=== PATIENT | male | born 1965 | race Caucasian/White ===

== ENCOUNTER 2019-04-02 06:49 | Day surgery (SDC) | payer BC, SELFPAY ==
[2019-03-15 14:59] VITALS: BMI 28.0
--- NOTE | 2019-03-16 07:56 | HP_ITS ---
Intake Vital Signs 03/15/19 Body Mass Index (BMI) 28.0 03/15/19 Height 6 ft 03/15/19 Weight: 230 lb 03/15/19 Body Mass Index (BMI) 31.1 03/15/19 Blood Pressure 107/73 03/15/19 Blood Pressure Location Rt brachial 03/15/19 Respiratory Rate 18 03/15/19 Pulse Rate 97 Intake Visit Reasons: Abdominal Strain W/C Electoral Officer Required: No Is patient in pain?: No Allergies No Known Allergies Allergy (Verified 03/15/19 14:59) Medications Lisinopril/Hydrochlorothiazide [Zestoretic 20-25 mg Tablet] 1 ea PO DAILY 10/26/16 [History Confirmed 03/15/19] Omeprazole [Prilosec] 20 mg PO DAILY 10/26/16 [History Confirmed 03/15/19] Nicotine [Nicotine Patch] 1 ea TD QHS #30 patch.td24 11/01/16 [Rx Confirmed 03/15/19] PFS Medical History GERD (gastroesophageal reflux disease) (Acute) HTN (hypertension) (Chronic) Surgical History (Updated 03/15/19 @ 14:54 by Janiya Marcos) H/O melanoma excision (Acute) History of back surgery (Acute) S/P excision of vocal cord nodule (Acute) Family History (Updated 03/15/19 @ 14:54 by Janiya Marcos) Father Diabetes Mother Hypertension Aunt Hypertension Social History (Updated 03/16/19 @ 07:56 by Izzy Dumont MD) Smoking Status: Current every day smoker alcohol intake: current HPI HPI HPI: MICH GRANT, is a 54 M who presents to the office today for HPI HPI Surgical H&P: Yes HPI: MICH GRANT, is a 54 M who presents to the office today for umbilical hernia. Patient states that he has noticed that over months times dull pain around his umbilicus and a bulge at his navel. Patient states that he works at [employer] and he does lift boxes of 25 to 30 pounds repetitively. Patient states that the bulge at his navel is new. Patient currently states the pain at his umbilicus is 2/10 when he goes to lift it is a 4/10. Patient is currently on light duty at work. Patient states he has bowel movements daily denies any blood. Patient has no immediate family history of colon cancer however his half sister's (same mother) son was diagnosed with colon cancer at age 25. Patient is never had a colonoscopy. ROS General General: Yes weight change and fatigue Gastro Gastrointestinal: Yes abdominal pain, No nausea or vomiting, No diarrhea, No constipation, No blood in stool, Yes acid reflux (Controlled with medication), No hemorrhoids, No ulcers, No gallbladder problem, No black,tarry stools Exam Const General: cooperative, comfortable, no acute distress Resp Effort & Inspection: normal respiratory effort Cardio Rate: regular rate GI Inspection: non-distended Palpation: soft, no guarding, hernia umbilical (0.5cm, reductible), tender (at hernia, no PS) Extrem General: no clubbing, cyanosis or edema Psych Affect: normal affect Assessment & Plan Problems 1. Umbilical hernia K42.9 2. Screening for colon cancer Z12.11 Plan Discussed with patient that his current C9 for [employer]. is abdominal strain and we would need to await paperwork for this to be changed umbilical hernia for them to agree to an umbilical hernia repair with possible mesh. Recommend no lifting greater than 20 pounds until hernia repair completed and he will still be on some restrictions initially postoperatively per Once it is approved by [employer]. will plan to do an umbilical herniorrhaphy with mesh. Reviewed the procedure with the patient including the risks, including but not limited to infection, bleeding, injury to the small bowel, and recurrence. All questions were answered. Also, discussed risk of strangulated bowel. Cautioned the patient that if he has N/V, ABD distention, increased umbilical pain or changes of the skin over the hernia he needs to go to the ER. Also discussed patient he is due for screening colonoscopy. Prefer to complete this prior to surgery and placing mesh in the abdomen. Patient will let us know what he plans to do. I believe this would hold up his umbilical hernia repair as we start wait for the paperwork. I have discussed the above with the patient. I have offered the patient colonoscopy for evaluation. I have explained the risks/benefits of the procedure and described the procedure. I have discussed the risks with the patient, including but not limited to: infection, bleeding, perforation of the GI tract requiring emergency surgery, inability to complete the procedure, injury to any internal organs, complications of anesthesia, etc. - the patient understands and agrees to proceed. I have answered all the patient's questions to the patient's satisfaction and the patient has no further questions. The patient has been given instructions for the colon cleansing preparation. 1 day of clears, MiraLAX Dulcolax prep. Izzy Dumont M.D. Pager: [phone] [facility] [address] [place] [address], [facility], [address] [place] [address] Office: [phone] Plan Detail Follow Up Will schedule surgery as soon as able to complete, or possibly colonoscopy in the meantime Coding Level of Care Code Off vis,new,level 3 Diagnoses Umbilical hernia K42.9 Screening for colon cancer Z12.11 03/16/19 0756 <Electronically signed by Izzy Babcock am, MD> Date _ Izzy Dumont MD I have examined the patient the following changes are noted: Patient states he has been doing well on light duty at work no pain at the hernia site. Patient states he tolerated the bowel prep well and it was clear this morning.
[2019-04-02] VITALS (7 sets, daily range): BP systolic 98–135; BP diastolic 66–93; PULSE 72–76; RESP 16; TEMP 36.3–37; O2SAT 96–100; BMI 31.2
--- NOTE | 2019-04-02 | COLBX_PTH ---
PATIENT: MICH GRANT LOC: [facility] U#:[id number] AGE/SX: 54/M ROOM: RE04/02/[address]: Dr. Izzy Dumont MD : 1965 BED: DIS: 04/02/2019 SPEC #: [id number] RECD: 04/02/19 12:24 STATUS: MARKEL ROBEL #: [id number] JAVIER: 04/02/19 00:[address]: Izzy Dumont DEPT: SURGICAL PATHOLOGY RECD BY: Ankur Balbuena ENTERED: 04/02/19 12:25 SP TYPE: COLON BX OTHR DR: Dr. Manjit Fernández MD Tissues: A - Ascending colon B - Rectum, NOS Procedures: Surgery Specimen Level IV HEADER OPERATION: Colonoscopy (MAC) PRE-OP DIAGNOSIS: Screening TISSUE SUBMITTED: A - Ascending colon polyp biopsy, B - Rectal polyp biopsy MICROSCOPIC DIAGNOSIS A. Ascending colon polyp, biopsy: Tubular adenoma. B. Rectal polyp, biopsy: Hyperplastic polyp. AM:guero 04/03/19 MICROSCOPIC DESCRIPTION Slides are reviewed. GROSS DESCRIPTION A - Received in fixative is one container labeled with the patient's name and designated ascending colon polyp. The specimen consists of one irregular fragment of light jeronimo soft tissue that measures 0.4 x 0.4 x 0.1 cm. The specimen is totally submitted in one cassette. B - Received in fixative is one container labeled with the patient's name and designated rectal polyp biopsy. The specimen consists of two irregular fragments of light jeronimo soft tissue that in aggregate measure 0.5 x 0.4 x 0.1 cm. The specimen is totally submitted in one cassette. / ALEJANDRO:guero 04/02/19 TC:5 CPT: 23466 x2
--- NOTE | 2019-04-02 08:25 | OP.ENDO_ITS ---
04/02/2019 Manjit Fernández [address] [place] [address] Re : Colonoscopy procedure for Asaf Flores Dear Dr. Fernández This procedure was performed on Tuesday, April 02, 2019. My impressions and recommendations are as follows: Impressions : - Hemorrhoids found on perianal exam. - Two less than 5 mm polyps in the rectum and in the ascending colon, removed with a cold biopsy forceps. Resected and retrieved. - The examination was otherwise normal on direct and retroflexion views. Recommendations : - Discharge patient to home. - Resume previous diet. - Continue present medications. - Await pathology results. - Repeat colonoscopy in 3 - 5 years for surveillance based on pathology results. My findings are described in the full procedure note, which is enclosed. If I can be of further assistance, please feel free to contact me at Doctor phone number(s): , Work: . Sincerely, MD Izzy Red MD 04/02/2019 8:25:13 AM This report has been signed electronically.
== END 2019-04-02 08:54 | disposition home or self-care (01) ==
LOC: EN 06:50 → AC 06:51
PROVIDERS: Family Provider Family Medicine; PCP Family Medicine; Referring Provider Surgery; Visit Provider Surgery
PROC: 0DJD8ZZ Inspection of Lower Intestinal Tract, Via Natural or Artificial Opening Endoscopic (ICD-10-PCS; CPT 45378; principal; 2019-04-02 07:55)
DX: Z12.11 Encounter for screening for malignant neoplasm of colon (principal); K64.9 Unspecified hemorrhoids; K62.1 Rectal polyp; D12.2 Benign neoplasm of ascending colon; I10 Essential (primary) hypertension; K21.9 Gastro-esophageal reflux disease without esophagitis; F17.200 Nicotine dependence, unspecified, uncomplicated; K42.9 Umbilical hernia without obstruction or gangrene
CPT/HCPCS: 45380; 88305; J7120

== ENCOUNTER 2019-04-09 13:31 | Day surgery (SDC) | payer OTHER, SELFPAY ==
--- NOTE | 2019-03-16 07:56 | HP_ITS ---
Intake Vital Signs 03/15/19 Body Mass Index (BMI) 28.0 03/15/19 Height 6 ft 03/15/19 Weight: 230 lb 03/15/19 Body Mass Index (BMI) 31.1 03/15/19 Blood Pressure 107/73 03/15/19 Blood Pressure Location Rt brachial 03/15/19 Respiratory Rate 18 03/15/19 Pulse Rate 97 Intake Visit Reasons: Abdominal Strain W/C Jira Administrator Required: No Is patient in pain?: No Allergies No Known Allergies Allergy (Verified 03/15/19 14:59) Medications Lisinopril/Hydrochlorothiazide [Zestoretic 20-25 mg Tablet] 1 ea PO DAILY 10/26/16 [History Confirmed 03/15/19] Omeprazole [Prilosec] 20 mg PO DAILY 10/26/16 [History Confirmed 03/15/19] Nicotine [Nicotine Patch] 1 ea TD QHS #30 patch.td24 11/01/16 [Rx Confirmed 03/15/19] PFS Medical History GERD (gastroesophageal reflux disease) (Acute) HTN (hypertension) (Chronic) Surgical History (Updated 03/15/19 @ 14:54 by Janiya Marcos) H/O melanoma excision (Acute) History of back surgery (Acute) S/P excision of vocal cord nodule (Acute) Family History (Updated 03/15/19 @ 14:54 by Janiya Marcos) Father Diabetes Mother Hypertension Aunt Hypertension Social History (Updated 03/16/19 @ 07:56 by Izzy Dumont MD) Smoking Status: Current every day smoker alcohol intake: current HPI HPI HPI: MICH GRANT, is a 54 M who presents to the office today for HPI HPI Surgical H&P: Yes HPI: MICH GRANT, is a 54 M who presents to the office today for umbilical hernia. Patient states that he has noticed that over months times dull pain around his umbilicus and a bulge at his navel. Patient states that he works at [employer] and he does lift boxes of 25 to 30 pounds repetitively. Patient states that the bulge at his navel is new. Patient currently states the pain at his umbilicus is 2/10 when he goes to lift it is a 4/10. Patient is currently on light duty at work. Patient states he has bowel movements daily denies any blood. Patient has no immediate family history of colon cancer however his half sister's (same mother) son was diagnosed with colon cancer at age 25. Patient is never had a colonoscopy. ROS General General: Yes weight change and fatigue Gastro Gastrointestinal: Yes abdominal pain, No nausea or vomiting, No diarrhea, No constipation, No blood in stool, Yes acid reflux (Controlled with medication), No hemorrhoids, No ulcers, No gallbladder problem, No black,tarry stools Exam Const General: cooperative, comfortable, no acute distress Resp Effort & Inspection: normal respiratory effort Cardio Rate: regular rate GI Inspection: non-distended Palpation: soft, no guarding, hernia umbilical (0.5cm, reductible), tender (at hernia, no PS) Extrem General: no clubbing, cyanosis or edema Psych Affect: normal affect Assessment & Plan Problems 1. Umbilical hernia K42.9 2. Screening for colon cancer Z12.11 Plan Discussed with patient that his current C9 for [employer]. is abdominal strain and we would need to await paperwork for this to be changed umbilical hernia for them to agree to an umbilical hernia repair with possible mesh. Recommend no lifting greater than 20 pounds until hernia repair completed and he will still be on some restrictions initially postoperatively per Once it is approved by [employer]. will plan to do an umbilical herniorrhaphy with mesh. Reviewed the procedure with the patient including the risks, including but not limited to infection, bleeding, injury to the small bowel, and recurrence. All questions were answered. Also, discussed risk of strangulated bowel. Cautioned the patient that if he has N/V, ABD distention, increased umbilical pain or changes of the skin over the hernia he needs to go to the ER. Also discussed patient he is due for screening colonoscopy. Prefer to complete this prior to surgery and placing mesh in the abdomen. Patient will let us know what he plans to do. I believe this would hold up his umbilical hernia repair as we start wait for the paperwork. I have discussed the above with the patient. I have offered the patient colonoscopy for evaluation. I have explained the risks/benefits of the procedure and described the procedure. I have discussed the risks with the patient, including but not limited to: infection, bleeding, perforation of the GI tract requiring emergency surgery, inability to complete the procedure, injury to any internal organs, complications of anesthesia, etc. - the patient understands and agrees to proceed. I have answered all the patient's questions to the patient's satisfaction and the patient has no further questions. The patient has been given instructions for the colon cleansing preparation. 1 day of clears, MiraLAX Dulcolax prep. Izzy Dumont M.D. Pager: [phone] [facility] [place] [address] Office: [phone] Plan Detail Follow Up Will schedule surgery as soon as able to complete, or possibly colonoscopy in the meantime Coding Level of Care Code Off vis,new,level 3 Diagnoses Umbilical hernia K42.9 Screening for colon cancer Z12.11 03/16/19 0756 <Electronically signed by Izzy Babcock am, MD> Date _ Izzy Dumont MD I have examined the patient the following changes are noted: Patient did have a screening colonoscopy which showed a tubular adenoma in the ascending colon and a hyperplastic polyp in the rectum, recommend repeat colonoscopy in 5 years. No other clinical changes noted. Izzy Dumont M.D. Pager: [phone] [facility] [address] [place] [address] Office: [phone]
[2019-04-02 07:07] VITALS: BMI 31.2
[2019-04-09] VITALS (7 sets, daily range): BP systolic 122–154; BP diastolic 68–103; PULSE 79–88; RESP 16; TEMP 36.1–36.5; O2SAT 92–98; BMI 31.6
--- NOTE | 2019-04-09 13:44 | EKG12_ITS ---
Test Reason : PRE-OP Blood Pressure : / mmHG Vent. Rate : 080 BPM Atrial Rate : 080 BPM P-R Int : 168 ms QRS Dur : 090 ms QT Int : 406 ms P-R-T Axes : 034 012 017 degrees QTc Int : 468 ms Normal sinus rhythm Normal ECG When compared with ECG of 26-OCT-2016 10:04, No significant change was found Confirmed by LYDIA OATES ([id number]), telegraph editor TIFFANIE ORELLANA ([id number]) on 04/12/2019 2:43:54 PM Referred By: Izzy Dumont Confirmed By:LYDIA OATES
[2019-04-09 14:24] LABS: Anion Gap 8 (5-15); BUN 16 mg/dL (7-18); BUN/Creat Ratio 15.1 RATIO (10-20); Calcium,Total 8.6 mg/dL (8.5-10.1); Chloride 103 mmol/L (98-107); Creatinine, Serum 1.06 mg/dL (0.70-1.30); EST Glomerular Filtration Rate 77 mL/min (>60); Est Glom Filt Rate - Afr Amer 93 mL/min (>60); Estimated Creatinine Clearance 86.43 ml/min; Glucose 87 mg/dL (74-106); Potassium 3.7 mmol/L (3.5-5.1); Sodium Level 135 mmol/L (136-145)
[2019-04-09] MEDS: Cefazolin 2 GM in 0.9% Normal Saline 100 ML IV (15:07)
--- NOTE | 2019-04-09 15:15 | HERN_PTH ---
PATIENT: MICH GRANT LOC: [facility] U#:[id number] AGE/SX: 54/M ROOM: RE04/09/[address]: Dr. Izzy Dumont MD : 1965 BED: DIS: 04/09/2019 SPEC #: [id number] RECD: 04/10/19 07:38 STATUS: MARKEL ROBEL #: [id number] JAVIER: 04/09/19 15:[address]: Izzy Dumont DEPT: SURGICAL PATHOLOGY RECD BY: Papito Garcia ENTERED: 04/10/19 09:00 SP TYPE: Hernia OTHR DR: Dr. Manjit Fernández MD Tissues: HERNIA Procedures: Surgery Specimen Level II HEADER OPERATION: Umbilical hernia repair with mesh PRE-OP DIAGNOSIS: Umbilical hernia TISSUE SUBMITTED: Hernia sac MICROSCOPIC DIAGNOSIS Umbilical hernia sac, herniorrhaphy: Fibrofatty tissue consistent with hernia sac. AM:guero 04/11/19 MICROSCOPIC DESCRIPTION Slides are reviewed. GROSS DESCRIPTION Received in fixative is one container labeled with the patient's name and designated hernia sac. The specimen consists of an irregular fragment of glistening jeronimo-pink soft tissue measuring 2.6 x 1.5 x 0.3 cm. The specimen is submitted in its entirety in one cassette. / AM:guero 04/10/19 TC:5 CPT: 31675
--- NOTE | 2019-04-09 16:07 | OP.PCM_ITS ---
Report of Operation Date of Procedure: 04/09/19 Pre-Operative Diagnosis: Umbilical hernia Post-Operative Diagnosis: Same Surgery/Procedure Performed:: Umbilical hernia repair with mesh otr van cdl truck driver: Babatunde Amaro Type of Anesthesia:: General/Supplemental Anesthesiologist: Joselito Menendez Special Medications: Ancef 2 g IV x1 Specimen's removed: Hernia sac Estimated Blood Loss (mL): < 10 cc Fluids Replaced: 1200 cc Description of Procedure: Patient was brought into the room placed supine on the operating table. Correct patient, procedure, site, positioning, special, was verified prior to procedure. General anesthesia was induced. The abdomen was prepped draped in usual sterile fashion. A curvilinear incision was made below the umbilicus with a 15 blade scalpel. This was deepened with electrocautery. A hemostat was used to go around the stalk of the umbilicus and Metzenbaum scissors was used to carefully divide the hernia sac from the skin of the umbilicus. The fascia around the hernia defect was cleared and the hernia defect measured 1.2 cm x 1.3 cm. Hernia sac was sent to pathology. Ventralex ST hernia patch 4.3 diameter (lot [id number] REF [id number]) was placed and confirmed to be laying flat. Straps were sutured with horizontal mattress suture using 0 Nurolon. Mesh was also secured superiorly and inferiorly using the [id number]-conse sutures which also closed the fascial defect. The wound was irrigated with saline. Hemostasis was assured. The skin of the umbilicus was secured to the fascia using 3-0 Vicryl suture interrupted. The incision was closed with 3-0 Vicryl subdermal interrupted sutures and the skin was closed with interrupted 4-0 Monocryl sutures. Steri-Strips and Tegaderm and OpSite were placed over the incision once sterile cotton balls were placed in the umbilicus. Patient was extubated. Patient tolerated procedure well and was taken to the postanesthesia care unit in stable condition. Grafts/Implants Used: Ventralex ST hernia patch 4.3 diameter (lot [id number] REF [id number]) - Complications None
[2019-04-09] MEDS: Bupivacaine Mpf 0.5% 30 ML VIAL (16:10)
--- NOTE | 2019-04-09 16:11 | DCINST_ITS ---
Discharge Diet: No Restrictions Discharge Activity: May not drive while taking narcotic pain medications. May shower in (days): 5 - Keep dressing clean dry and intact x5 days, okay to shower if using a Ziploc bag with the edges taped off, or okay for lower shower and upper sponge bath. Lifting Restrictions: No lifting greater than 20 pounds x 3 weeks Call your doctor if your incision/area has: Continuous Slow Oozing, Sudden Increased Bleeding, Increased Pain/ Swelling, Increased Redness, Foul Smelling Discharge, Swelling at the incision site Call your doctor if you observe: Fever of 101 or Higher Change Dressing in (Days):: 5 - Replace cotton balls or balled up gauze for the skin of the bellybutton and tape in place. Change daily continue for 2 days. Additional Instructions: Okay to take ibuprofen 400-600 mg PO q6hr PRN along with the Percocet. Avoid Tylenol since there is already Tylenol in the Percocet. Take all pain meds with food. Percocet can cause constipation recommend taking daily stool softener (i.e. Colace/docusate) while taking the pain meds. Recommend starting some MiraLAX in 1 to 2 days if no bowel movement. If still no bowel movement the following day recommend taking magnesium citrate half the bottle and waiting 4-6 hours if still no results take the other half the bottle. Allergies/Adverse Reactions: Allergies No Known Allergies Allergy (Verified 04/06/19 09:03) Medications to take at Discharge Lisinopril/Hydrochlorothiazide [Zestoretic 20-25 mg Tablet] 1 ea PO DAILY 10/26/16 Omeprazole [Prilosec] 20 mg PO DAILY 10/26/16 Oxycodone HCl/Acetaminophen [Percocet 5/325] 1 - 2 tab PO Q6H PRN PRN 3 Days #25 tab 04/09/19 The following prescriptions were given: Oxycodone HCl/Acetaminophen [Percocet 5/325] 1 - 2 tab PO Q6H PRN PRN 3 Days #25 tab PRN Reason: Pain Transmission Status: Received by [facility] Orders to be completed after discharge: Basic Metabolic Profile (BMP) Time Frame: 04/09/19, Facility: [facility], Location: Laboratory Primary Care Physician: Manjit Fernández MD [Primary Care Provider] - Test Results: Test results from this visit will be discussed in further detail at your follow- up appointment, if applicable. Please Follow Up With: Izzy Dumont MD - After 5:00 PM and on the weekends call [phone] with any concerns When: Call the office for follow-up appointment in 1 week Proposed Discharge Date: 04/09/19
== END 2019-04-09 17:57 | disposition home or self-care (01) ==
LOC: SDC 13:34 → AC 13:37
PROVIDERS: Anesthesiology; Family Provider Family Medicine; PCP Family Medicine; Referring Provider Surgery; Visit Provider Surgery
PROC: (CPT 49585; principal; 2019-04-09 15:00)
DX: K42.9 Umbilical hernia without obstruction or gangrene (principal); I10 Essential (primary) hypertension; K21.9 Gastro-esophageal reflux disease without esophagitis; Z85.820 Personal history of malignant melanoma of skin; Z87.891 Personal history of nicotine dependence
CPT/HCPCS: 49585; 36415; 80048; 88302; 93005; J7120; C1781; J2405

== ENCOUNTER → 2022-11-30 | Outpatient (CLI) | payer BC, SELFPAY ==
--- NOTE | 2022-11-30 18:15 | MRI_ITS ---
EXAM: MR RIGHT LOWER EXTREMITY WITHOUT INTRAVENOUS CONTRAST, ANKLE CLINICAL INDICATION: OA RIGHT ankle/foot pain TECHNIQUE: Multiplanar and multisequence MR images of the right ankle without intravenous contrast. This report was created using [email or web address] report vozero technology. COMPARISON: None. FINDINGS: LIGAMENTS: ANTERIOR TALOFIBULAR: Torn anterior talofibular ligament. Thickening of the calcaneofibular ligament from a previous injury. POSTERIOR TALOFIBULAR: Unremarkable. Intact. ANTERIOR TIBIOFIBULAR: Unremarkable. Intact. POSTERIOR TIBIOFIBULAR: Unremarkable. Intact. CALCANEOFIBULAR: See above. DELTOID: Unremarkable. Intact. SPRING: Unremarkable. Intact. LISFRANC: Unremarkable. Intact. TENDONS: ACHILLES: Unremarkable. Intact. FLEXOR: See below. EXTENSOR: Unremarkable. Intact. PERONEAL: Tenosynovitis involving the peroneal tendons and medial flexor tendons without tendon tearing. TIBIALIS ANTERIOR: Unremarkable. Intact. TIBIALIS POSTERIOR: Unremarkable. Intact. MUSCLES: Unremarkable. Normal bulk and signal. FLUID: Small to moderate posterior tibiotalar joint effusion and subtalar joint effusion with synovitis. SINUS TARSI: Unremarkable. Normal fat in the sinus tarsi. TARSAL TUNNEL: Unremarkable. PLANTAR FASCIA: Unremarkable. No acute or active plantar fasciitis. CARTILAGE: Unremarkable. No osteochondral lesion. Articular cartilage intact. BONES/JOINTS: 9 mm osteochondral lesion at the lateral talar dome. Degenerative bone marrow edema at the tibiotalar articulation. Edema also is seen involving distal fibula without fracture line. 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 Large plantar calcaneal enthesophyte. Small posterior calcaneal enthesophyte. OTHER SOFT TISSUES: Remaining tendons are intact. MRI/Lower Ext Joint Only (Routine) IMPRESSION: 1. 9 mm osteochondral lesion at the lateral talar dome. 2. Tenosynovitis involving the peroneal tendons and medial flexor tendons without tendon tearing. 3. Torn anterior talofibular ligament. 4. 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 5. Small to moderate posterior tibiotalar joint effusion and subtalar joint effusion with synovitis. Electronically Signed: Troy Ramos MD at 21:23 EDT Reading Location ID and State: [facility] / [place] Tel , Service support ,
== END | disposition home or self-care (01) ==
LOC: MRI 17:48
PROVIDERS: PCP Nurse Practitioner Primary Care; Referring Provider Student in an Organized Health Care Education/Training Program; Visit Provider Student in an Organized Health Care Education/Training Program
DX: M19.271 Secondary osteoarthritis, right ankle and foot (principal); M25.571 Pain in right ankle and joints of right foot
CPT/HCPCS: 73721